=== PATIENT | female | born 1995 | race Two or more races ===

== ENCOUNTER 2018-09-12 11:51 | Outpatient (CLI) | payer OTHER | END 2018-09-12 17:00 | disposition home or self-care (01) | LOC: RX STUDY 11:51 | DX: R10.9 Unspecified abdominal pain (principal) ==

== ENCOUNTER → 2018-09-12 | Outpatient (CLI) | payer OTHER ==
[~2018-09-12] MED LIST: NORFLEX100MG PO
== END | disposition home or self-care (01) ==
LOC: LAB 10:01
DX: Z32.00 Encounter for pregnancy test, result unknown (principal)

== ENCOUNTER 2023-05-17 22:20 | Inpatient (IN) | payer OTHER ==
[~2023-05-17] VITALS: Ht 160 cm; Wt 76.2 kg
[2023-05-18] MEDS ORDERED: PRENATAL TABLE1 EAC4 PO (00:49)
[2023-05-18 01:15] LABS: HEMATOCRIT 38.4 % (36.0-45.00); HEMOGLOBIN 12.8 g/dL (12.0-15.00); MEAN CELL VOLUME 87.2 fL (80.00-100.00); MEAN CORPUSCULAR HEMOGLOBIN 29.2 pg (27.00-32.0); MEAN CORPUSCULAR HGB CONC 33.5 g/dl (32.0-36.0); PLATELET COUNT 225 K/uL (150-450); RED CELL DISTRIBUTION WIDTH 14.6 % (11.5-14.5)
[2023-05-18 21:04] LABS: ABG PH 7.322 (7.35-7.45); ABG pCO2 46.9 mmHg (35-45)
[2023-05-18 21:05] LABS: ABG PO2 27.6 mmHg (80-100); BASE EXCESS -2.6 mmol/l; BICARBONATE 23.7 mmol/l (23-25); SaO2 44.8 %
[2023-05-19 02:46] LABS: HEMATOCRIT 31.1 % (36.0-45.00); HEMOGLOBIN 10.2 g/dL (12.0-15.00); MEAN CELL VOLUME 88.9 fL (80.00-100.00); MEAN CORPUSCULAR HEMOGLOBIN 29.2 pg (27.00-32.0); MEAN CORPUSCULAR HGB CONC 32.8 g/dl (32.0-36.0); PLATELET COUNT 165 K/uL (150-450); RED CELL DISTRIBUTION WIDTH 14.6 % (11.5-14.5)
== END 2023-05-21 19:38 | disposition home or self-care (01) | DRG 788 ==
LOC: OBS/DEL 22:20 → LDR 05-18 08:20 → OBS/DEL 05-18 08:20 → O/R 05-18 20:55 → OB/GYN 05-18 21:50
PROVIDERS: ADMIT Obstetrics & Gynecology; ATTEND Obstetrics & Gynecology
PROC: 4A1HXCZ Monitoring of Products of Conception, Cardiac Rate, External Approach (ICD-10-PCS; 2023-05-18)
PROC: 3E033VJ Introduction of Other Hormone into Peripheral Vein, Percutaneous Approach (ICD-10-PCS; 2023-05-18)
PROC: 10D00Z1 Extraction of Products of Conception, Low, Open Approach (ICD-10-PCS; principal; 2023-05-18 21:15)
DX: O62.1 Secondary uterine inertia (principal); O42.12 Full-term premature rupture of membranes, onset of labor more than 24 hours following rupture; Z3A.39 39 weeks gestation of pregnancy; Z37.0 Single live birth